=== PATIENT | male | born 1975 | race Caucasian/White ===

== ENCOUNTER 2017-09-20 09:53 | Emergency (ER) | payer BC, MEDICAID ==
[~2017-09-20] VITALS: Ht 172.7 cm; Wt 83.0 kg
[~2017-09-20 09:53] MED LIST: CYCL-394 PO; NO HOME MEDS
[2017-09-20 09:56] VITALS: BP 110/68
[2017-09-20] MEDS ORDERED: acetaminophen 325mg tablet PO ONE (10:30)
[2017-09-20] MEDS ORDERED: azithromycin 250mg tablet PO ONE (10:30)
[2017-09-20] MEDS ORDERED: AZIT250T PO (10:41)
[2017-09-20] MEDS ORDERED: GUAI10SY2 PO (10:41)
== END 2017-09-20 11:04 | disposition home or self-care (01) ==
LOC: ER 09:54
DX: J20.9 Acute bronchitis, unspecified (principal); E11.9 Type 2 diabetes mellitus without complications; Z79.899 Other long term (current) drug therapy
CPT/HCPCS: 71046; 99284

== ENCOUNTER 2018-03-23 05:31 | Day surgery (SDC) | payer BC, MEDICAID ==
[2018-03-22 12:09] LABS: BASOPHILS # (AUTO) 0.1 X10'3 (0-0.2); BASOPHILS % (AUTO) 0.8 % (0-1); EOSINOPHILS # (AUTO) 0.3 X10'3 (0-0.9); EOSINOPHILS % (AUTO) 4.1 % (0-6); LYMPHOCYTES # (AUTO) 1.7 X10'3 (1.1-4.8); LYMPHOCYTES % (AUTO) 22.1 % (21-51); MEAN CORPUSCULAR HEMOGLOBIN 28.8 PG (27.0-31.0); MEAN CORPUSCULAR HGB CONC 33.5 % (33.0-36.5); MEAN CORPUSCULAR VOLUME 85.9 FL (78-98); MEAN PLATELET VOLUME 9.9 FL (7.4-10.4); MONOCYTES # (AUTO) 0.5 X10'3 (0-0.9); MONOCYTES % (AUTO) 7.3 % (2-12); NEUTROPHILS # (AUTO) 4.9 X10'3 (1.8-7.7); NEUTROPHILS % (AUTO) 65.7 % (42-75); PRE OP HEMATOCRIT 45.9 % (42.0-52.0); PRE OP HEMOGLOBIN 15.4 g/dL (14.0-17.9); PRE OP PLATELET COUNT 256 X10'3 (140-440); RED BLOOD COUNT 5.35 X10'6 (4.70-6.10)
[2018-03-22 12:33] LABS: ALBUMIN 4.1 G/DL (3.4-5.0); ALBUMIN/GLOBULIN RATIO 1.1 (1.1-1.5); ALKALINE PHOSPHATASE 68 IU/L (46-116); BLOOD UREA NITROGEN 14 MG/DL (7-18); BUN/CREATININE RATIO 14.6 (5.4-32.0); CALCIUM 9.6 MG/DL (8.5-10.1); CHLORIDE 104 MMOL/L (99-107); CREATININE 0.96 MG/DL (0.60-1.10); PRE OP ALT 34 U/L (30-65); PRE OP ANION GAP 10 (8-16); PRE OP AST 22 U/L (10-37); PRE OP BILIRUB, TOTAL 0.4 MG/DL (0.0-1.0); PRE OP GLUCOSE 96 MG/DL (70-104); PRE OP SODIUM 141 MMOL/L (135-145); TOTAL PROTEIN 7.7 G/DL (6.4-8.2); eGFR 86 ML/MIN
[2018-03-23] VITALS (10 sets, daily range): BP systolic 116–138; BP diastolic 63–88
[~2018-03-23] VITALS: Ht 172.7 cm; Wt 77.2 kg
[~2018-03-23 05:31] MED LIST changes: -CYCL-394 PO; +HYDR-565 PO; -NO HOME MEDS; +cefazolin/dext.iso 2gm/100 ML IV ONE; +famotidine 20mg tablet PO ONE; +ringers solution, lacted 1,000 ML IV SCH; +vancomycin inj 1,500 MG in normal saline 300ml IV soln IV ONE
[2018-03-23] MEDS ORDERED: OXYC10TA86 PO (06:05)
[2018-03-23] MEDS ORDERED: sevoflurane 250ml liquid IH ONE (07:07)
[2018-03-23] MEDS ORDERED: cloNIDine hcl/PF 100mcg/ml inj ONE (07:10)
[2018-03-23] MEDS ORDERED: ROPIVAcaine 0.5% (5mg/ml) 30ml vial ONE (07:10)
[2018-03-23] MEDS ORDERED: fentaNYL/PF 50MCG/1 ML 2ML syringe ONE (07:11)
[2018-03-23] MEDS ORDERED: MIDAZolam 5mg/5ml vial ONE (07:11)
[2018-03-23] MEDS ORDERED: propofol inj 20 ML IV ONE (07:14)
[2018-03-23] MEDS ORDERED: dexamethasone sod phosphate 4mg/ml inj. ONE (07:29)
[2018-03-23] MEDS ORDERED: ondansetron/PF 4mg/2ml inj ONE (09:28)
[2018-03-23] MEDS ORDERED: HYDROcodone/acetaminophen 10/325mg tab PO PRN (09:40)
[2018-03-23] MEDS ORDERED: ringers solution, lacted 1,000 ML IV SCH (09:41)
[2018-03-23] MEDS ORDERED: meperidine/PF 25mg/ml syringe IV PRN ×3 (09:45)
[2018-03-23] MEDS ORDERED: proCHLORperazine 10 MG/2 ml inj IV PRN (09:45)
[2018-03-23] MEDS ORDERED: morphine 4 MG/ML inj SYRINge IV PRN ×2 (09:45)
[2018-03-23] MEDS ORDERED: ondansetron/PF 4mg/2ml inj IV PRN (09:45)
== END 2018-03-23 11:00 | disposition home or self-care (01) ==
LOC: PAS 05:31
PROVIDERS: ATTEND Orthopaedic Surgery
DX: S43.431A Superior glenoid labrum lesion of right shoulder, initial encounter (principal); M75.41 Impingement syndrome of right shoulder; M75.21 Bicipital tendinitis, right shoulder; M19.011 Primary osteoarthritis, right shoulder; M75.51 Bursitis of right shoulder; M25.711 Osteophyte, right shoulder; Z79.891 Long term (current) use of opiate analgesic; Z91.048 Other nonmedicinal substance allergy status; Z79.899 Other long term (current) drug therapy; Z98.890 Other specified postprocedural states; X58.XXXA Exposure to other specified factors, initial encounter; Y93.89 Activity, other specified; Y92.89 Other specified places as the place of occurrence of the external cause; Y99.8 Other external cause status
CPT/HCPCS: 29822; 29824; 29826; 29828; 36415; 80053; 85025; 93005; A4565; A6449; C1713; J0690; J0735; J1100; J2250; J2405; J2704; J2795; J3010; J3370; J7030; J7120; A7000

== ENCOUNTER 2018-04-17 03:33 | Emergency (ER) | payer BC, MEDICAID ==
[~2018-04-17] VITALS: Ht 172.7 cm; Wt 82.2 kg
[~2018-04-17 03:33] MED LIST changes: +HYDR-4353 PO; -HYDR-565 PO; +OXYC10TA86 PO; -cefazolin/dext.iso 2gm/100 ML IV ONE; -famotidine 20mg tablet PO ONE; -ringers solution, lacted 1,000 ML IV SCH; -vancomycin inj 1,500 MG in normal saline 300ml IV soln IV ONE
[2018-04-17 03:42] VITALS: BP 117/80
== END 2018-04-17 04:09 | disposition home or self-care (01) ==
LOC: ER 03:33
DX: M79.601 Pain in right arm (principal); M25.511 Pain in right shoulder; Z98.890 Other specified postprocedural states
CPT/HCPCS: 99281

== ENCOUNTER 2018-07-11 20:29 | Emergency (ER) | payer BC, MEDICAID ==
[~2018-07-11] VITALS: Ht 172.7 cm; Wt 87.0 kg
[2018-07-11 20:38] VITALS: BP 133/82
[2018-07-11] MEDS ORDERED: normal saline 1000ml 1,000 ML IV ONE (21:35)
--- NOTE | 2018-07-11 21:57 | NUR ---
PA informed that pt has a headache.
[2018-07-11] MEDS ORDERED: ondansetron/PF 4mg/2ml inj IV ONE (22:00)
[2018-07-11] MEDS ORDERED: diphenhydrAMINE 50 mg/ml inj IV ONE (22:00)
[2018-07-11 22:24] LABS: BASOPHILS % (AUTO) 0.4 % (0-1); EOSINOPHILS # (AUTO) 0.5 X10'3 (0-0.9); EOSINOPHILS % (AUTO) 3.8 % (0-6); HEMATOCRIT 45.9 % (42.0-52.0); HEMOGLOBIN 15.9 g/dl (14.0-17.9); LYMPHOCYTES # (AUTO) 1.4 X10'3 (1.1-4.8); LYMPHOCYTES % (AUTO) 11.4 % (21-51); MEAN CORPUSCULAR HEMOGLOBIN 29.5 PG (27.0-31.0); MEAN CORPUSCULAR HGB CONC 34.6 % (33.0-36.5); MEAN PLATELET VOLUME 10.2 FL (7.4-10.4); MONOCYTES # (AUTO) 0.9 X10'3 (0-0.9); MONOCYTES % (AUTO) 7.3 % (2-12); NEUTROPHILS # (AUTO) 9.8 X10'3 (1.8-7.7); NEUTROPHILS % (AUTO) 77.1 % (42-75); PLATELET COUNT 249 X10'3 (140-440); RED CELL DISTRIBUTION WIDTH 13.6 % (11.5-14.5); WHITE BLOOD COUNT 12.7 X10'3 (4.5-11.0)
[2018-07-11 22:26] LABS: ALANINE AMINOTRANSFERASE 32 U/L (12-78); ALBUMIN 4.1 G/DL (3.4-5.0); ALBUMIN/GLOBULIN RATIO 1.1 (1.1-1.5); ALKALINE PHOSPHATASE 85 IU/L (46-116); ANION GAP 12 (8-16); ASPARTATE AMINO TRANSFERASE 21 U/L (10-37); BILIRUBIN,TOTAL 0.3 MG/DL (0.1-1.0); BLOOD UREA NITROGEN 14 MG/DL (7-18); BUN/CREATININE RATIO 12.5 (5.4-32.0); CHLORIDE 104 MMOL/L (99-107); CREATININE 1.12 MG/DL (0.60-1.10); GLUCOSE 96 MG/DL (70-104); POTASSIUM 3.6 MMOL/L (3.5-5.1); SODIUM 139 MMOL/L (135-145); TOTAL CARBON DIOXIDE 23.3 MMOL/L (24-32); TOTAL PROTEIN 7.9 G/DL (6.4-8.2); eGFR 72 ML/MIN
--- NOTE | 2018-07-11 22:30 | NUR ---
ua collected, very pale (sample is warm) and he is asleep on his left side.
[2018-07-11 23:07] LABS: CLARITY,URINE CLEAR (Clear); COLOR,URINE STRAW (Yellow); GLUCOSE, URINE NEGATIVE (Neg); KETONES,URINE NEGATIVE (Neg); LEUKOCYTE ESTERASE ,URINE NEGATIVE (Neg); NITRITES, URINE NEGATIVE (Neg); OCCULT BLOOD,URINE NEGATIVE (Neg); PH,URINE 6.5 (4.8-8.0); PROTEIN,URINE NEGATIVE (Neg); UROBILINOGEN,URINE 0.2 E.U/dL (0.2-1.0)
[2018-07-11 23:09] LABS: UA COLLECTION TYPE VOIDED
--- NOTE | 2018-07-12 00:03 | NUR ---
He awoke from sleeping and he is feeling better, informed him we are just awaiting the flu swab results.
[2018-07-12] MEDS ORDERED: DIPH25CA83 PO (00:25)
[2018-07-12] MEDS ORDERED: PRED20TA PO (00:25)
== END 2018-07-12 00:31 | disposition home or self-care (01) ==
LOC: ER 20:29
DX: B34.9 Viral infection, unspecified (principal); Z98.890 Other specified postprocedural states; Z79.899 Other long term (current) drug therapy
CPT/HCPCS: 36415; 80053; 81003; 85025; 87502; 87503; 96374; 96375; 99283; J1200; J2405; J7030